=== PATIENT | male | born 1970 ===

== ENCOUNTER 2020-03-25 06:05 | Day surgery (SDC) | payer OTHER | END 2020-03-25 11:40 | disposition home or self-care (01) | LOC: CIR.AMB 06:05 | PROVIDERS: ATTEND Orthopaedic Surgery Hand Surgery | DX: M65.341 Trigger finger, right ring finger (principal); Z20.828 Contact with and (suspected) exposure to other viral communicable diseases; M65.841 Other synovitis and tenosynovitis, right hand ==